=== PATIENT | female | born 1960 | race Two or more races ===

== ENCOUNTER 2017-09-01 14:02 | Emergency (ER) | payer MEDICAID, OTHER ==
[~2017-09-01] VITALS: Ht 162.6 cm; Wt 91.6 kg
[~2017-09-01 14:02] MED LIST: ATORVASTATIN CA10 MG ORAL; METFORMIN HCL500 M1 ORAL
[2017-09-01] MEDS ORDERED: Hydrogen Peroxide 473ml Bottle TOPIC ONE (15:00)
[2017-09-01] MEDS ORDERED: Bacitracin Oint UD TOPIC ONE (15:00)
[2017-09-01] MEDS ORDERED: BACITRACIN15 GM TOPIC (15:15)
[2017-09-01] MEDS ORDERED: IBUPROFEN600 MG ORAL (15:15)
[2017-09-01] MEDS ORDERED: NORCO 5-325 TA1 EAC1 ORAL (15:15)
[2017-09-01 15:20] VITALS: BP 110/62
--- NOTE | 2017-09-01 15:48 | Emergency Room Report ---
History of Present Illness General Chief Complaint: Lower Extremity Injury Source: Patient (DMITRI RODRIGUEZ) Present Illness HPI The patient is a 57-year-old female with a history of diabetes presenting for left foot injury. She states that she was walking barefoot and mistakenly kicked a wooden piece of furniture. This occurred this morning. The patient noticed immediate pain and some bleeding. Pain is now a 7/10 throbbing sensation localized to the left big toe. Worse with movement. She does admit to some numbness which is normal for her due to neuropathy. She denies any other symptoms including calf pain, shortness of breath, cough, chest pain, fever, chills (DMITRI RODRIGUEZ) Allergies: Coded Allergies: No Known Allergies (Unverified , 11/02/13) Patient History Past Medical History: see triage record Pertinent Family History: none Reviewed Nursing Documentation: PMH: Agreed, PSxH: Agreed (DMITRI RODRIGUEZ) Nursing Documentation-PMH Hx Hypertension: Yes Hx Diabetes: Yes (DMITRI RODRIGUEZ) Review of Systems All Other Systems: negative except mentioned in HPI (DMITRI RODRIGUEZ) Physical Exam Vital Signs Date Time Temp Pulse Resp B/P (MAP) Pulse Ox O2 Delivery O2 Flow Rate FiO2 09/01/17 14:10 97.9 109 20 110/62 96 97.9 Sp02 EP Interpretation: reviewed, normal General Appearance: no apparent distress, alert, GCS 15, non-toxic Head: normocephalic, atraumatic Eyes: bilateral eye normal inspection, bilateral eye PERRL ENT: hearing grossly normal, normal pharynx, no angioedema, normal voice Neck: full range of motion, supple/symm/no masses Respiratory: no respiratory distress, no accessory muscle use, speaking full sentences Musculoskeletal: back normal, gait/station normal, normal range of motion, no calf tenderness, tender - R 1st toe TTP over nail. Toenail is lifting off of the medial border with some blood. Neurologic: alert, oriented x3, responsive, motor strength/tone normal, sensory intact, speech normal Psychiatric: judgement/insight normal, memory normal, mood/affect normal, no suicidal/homicidal ideation Skin: normal color, no rash, warm/dry, well hydrated (DMITRI RODRIGUEZ.[email or web address]) Procedures Splinting Splinting : Consent: Verbal Location: R foot Pre-Made Type: cast shoe Pre-Proc Neuro Vasc Exam: normal Post-Proc Neuro Vasc Exam: normal Patient Tolerated: Well Complications: None (DMITRI [email or web address].Amber) Medical Decision Making PA Attestation Dr. Song is my supervising physician. Patient management was discussed with my supervising physician (DMITRI RODRIGUEZ) Diagnostic Impression: Primary Impression: Injury of toe on right foot Qualified Codes: S99.921A - Unspecified injury of right foot, initial encounter ER Course The patient is a 57-year-old female with a history of diabetes presenting for left foot injury Ddx considered include but not limited to sprain/strain, fracture, contusion, Subungual hematoma, nail bed injury, among others PE: R 1st toe TTP over nail. Toenail is lifting off of the medial border with some blood. Nail is fully intact at the nailbed Sensation intact X-ray of the foot is reviewed with Dr. Song. Uncertain if fracture. Patient was informed final reading will be done tomorrow The area is cleaned with normal saline and soaked in peroxide Tape and dressing applied over the wound. cast shoe was applied The patient is given instructions to keep the area clean and dry at home. She is given prescription for bacitracin and pain medication. She'll followup with her primary doctor. ER precautions are given (DMITRI RODRIGUEZ) ER Course Patient examined by me. Care discussed. (Bill Song M.D.) Other X-Ray Diagnostic Results Other X-Ray Diagnostic Results : X-Ray ordered: R foot # of Views/Limited Vs Complete: 3 View Indication: Pain EP Interpretation: Yes PA Xray: Interpretation reviewed, by supervising MD, and agrees with findings. Interpretation: no dislocation, no soft tissue swelling, no fractures Impression: No acute disease Electronically Signed by: JULIANNE Cantu Scribe Text Films reviewed with Dr. Song. Not conclusive if fracture. (DMITRI RODRIGUEZ) Other X-Ray Diagnostic Results : # of Views/Limited Vs Complete: 3 View Indication: Other PA Xray: Interpretation reviewed, by supervising MD, and agrees with findings. Electronically Signed by: Gilson looked at these x-rays, Bill Song MD (Bill Song M.D.) Last Vital Signs Date Time Temp Pulse Resp B/P (MAP) Pulse Ox O2 Delivery O2 Flow Rate FiO2 09/01/17 15:20 97.9 20 110/62 96 208.2 09/01/17 14:10 109 Status: improved (IVORY RODRIGUEZY P.A.) Last Vital Signs Date Time Temp Pulse Resp B/P (MAP) Pulse Ox O2 Delivery O2 Flow Rate FiO2 09/01/17 15:20 97.9 20 110/62 96 208.2 09/01/17 14:10 109 Status: improved (Bill Song M.D.) Disposition: HOME, SELF-CARE Condition: Improved Scripts Bacitracin (Bacitracin) 28.4 Gm Oint...g. 1 APPLIC TOPIC THREE TIMES A DAY, #28 GM Prov: TERZIAN,DMITRI P.A. 09/01/17 Hydrocodone Bit/Acetaminophen 5-325* (NORCO 5-325 TABLET*) 1 Each Tablet 1 TAB ORAL Q6HR Y for For Pain, #5 TAB Prov: TERZIAN,DMITRI P.A. 09/01/17 Ibuprofen* (MOTRIN*) 600 Mg Tablet 600 MG ORAL Q8H Y for For Pain, #30 TAB 0 Refills Prov: TERZIAN,DMITRI P.A. 09/01/17 Patient Instructions: Subungual Hematoma, Contusion, Nail Bed Injury Additional Instructions: I discussed my findings with the patient. All questions and concerns have been answered. Treatment and medication compliance have been addressed. I advised the patient that they need to follow up with PMD in 3-5 days. Return to ED if pain remains or worsens, numbness or tingling occurs, new rash is noticed, fever is noticed, or if needed for any reason. Patient verbalized understanding of discharge instructions. The patient was given instructions including soaking with peroxide, elevation, keeping the area clean and dry. Please return to emergency Department if you notice increased pain, redness, fever DMITRI RODRIGUEZ P.A. Sep 01, 2017 15:48 Bill Song M.D. Sep 02, 2017 04:27
--- NOTE | 2017-09-02 12:17 | Diagnostic Imaging Report ---
Indication: Pain Comparison: None Findings: 3 views of the right foot were obtained. No acute fractures, malalignment, erosions or periostitis are identified. Soft tissue swelling is present. There is a prominent plantar calcaneal spur. Arthrosis in the midfoot noted.. Impression: No acute findings.
== END 2017-09-01 15:20 | disposition home or self-care (01) ==
LOC: EMR 14:29
DX: S99.822A Other specified injuries of left foot, initial encounter (principal); I10 Essential (primary) hypertension; E11.9 Type 2 diabetes mellitus without complications; W22.03XA Walked into furniture, initial encounter; Y92.9 Unspecified place or not applicable
CPT/HCPCS: 29540; 99284